=== PATIENT | male | born 1945 | race Caucasian/White ===

== ENCOUNTER 2018-05-05 10:02 | Inpatient (IN) | payer OTHER ==
[~2018-05-05] VITALS: Ht 175.3 cm; Wt 60.2 kg
[~2018-05-05 10:02] MED LIST: ASPIR-LOW81 MG PO; CARDIZEM CD120 MG PO; CENTRUM1 TAB PO; LEVOTHYROXIN0.075 MG PO
[2018-05-05 10:45] LABS: HEMATOCRIT 40.9 % (42.0-52.0); MEAN CELL VOLUME 93 fl (80.0-100.0); MEAN CORPUSCULAR HEMOGLOBIN 32 pg (27.0-31.0); MEAN CORPUSCULAR HGB CONC 34 g/dl (33.0-37.0); MEAN PLATELET VOLUME 10.7 fl (7.4-10.4); PLATELET COUNT 133 K/mm3 (130-400); RED BLOOD COUNT 4.39 M/mm3 (4.20-5.60); REDCELL DISTRIBUTION WIDTH-CV 12.9 % (11.5-14.5)
[2018-05-05 10:48] LABS: ALBUMIN 3.5 gm/dL (3.5-5.0); CREATININE, serum 1.57 mg/dL (0.66-1.25); POTASSIUM 3.9 mmol/L (3.4-5.0); TOTAL PROTEIN 6.8 gm/dL (6.4-8.2)
[2018-05-05 11:00] LABS: TROPONIN-I 0.024 ng/mL (0.000-0.034)
[2018-05-05 11:04] LABS: BAND 22 % (0-10); LYMPHOCYTE 3 % (20.0-51.0); METAMYELOCYTE 1 % (0-0); NEUTROPHILS 69 % (42.0-75.2); PLATELET ESTIMATE DECREASED (NORMAL)
[2018-05-05] MEDS ORDERED: PRILOSEC 20MG20 MG PO (11:42)
[2018-05-05] MEDS ORDERED: LEVOXYL0.05 MG PO (11:42)
[2018-05-05] MEDS ORDERED: NORVASC 5MG5 MG/TAB PO (11:42)
[2018-05-05] MEDS ORDERED: PRAVACHOL 40MG40 MG PO (11:43)
[2018-05-05] MEDS ORDERED: PRINIVIL40 MG PO (11:43)
[2018-05-05] MEDS ORDERED: COREG 6.256.25 MG/TA PO (11:43)
[2018-05-05 13:18] VITALS: BP 96/53; PULSE 70; TEMP 96.7
[2018-05-05 16:16] VITALS: BP 111/62; PULSE 58; TEMP 99
[2018-05-05 19:55] VITALS: BP 130/64; PULSE 76; TEMP 99.6
[2018-05-05 23:40] LABS: COLLECTION METHOD CLEAN CATCH
[2018-05-05 23:49] LABS: AMORPHOUS CRYSTAL Present /uL; GRANULAR CAST >12 /lpf; MUCOUS Present /lpf; PH 5 (5-8); SQUAMOUS EPITHELIAL 0-2 /hpf; URINE APPEARANCE Cloudy; URINE BACTERIA None Seen /hpf; URINE BILIRUBIN Negative (NEGATIVE); URINE BLOOD 2+ (NEGATIVE); URINE COLOR Yellow; URINE GLUCOSE Negative (NEGATIVE); URINE KETONE Negative (NEGATIVE); URINE LEUKOCYTE ESTERASE Negative (NEGATIVE); URINE NITRATE Negative (NEGATIVE); URINE PROTEIN(semi-quant) 2+ (NEGATIVE); URINE RBC 0-2 /hpf; URINE UROBILINOGEN Negative (NEGATIVE)
[2018-05-06 00:13] VITALS: BP 114/57; PULSE 64
[2018-05-06 05:22] VITALS: BP 114/67; PULSE 80
[2018-05-06 07:52] LABS: HEMATOCRIT 38.1 % (42.0-52.0); MEAN CELL VOLUME 92 fl (80.0-100.0); MEAN CORPUSCULAR HEMOGLOBIN 31 pg (27.0-31.0); MEAN CORPUSCULAR HGB CONC 34 g/dl (33.0-37.0); MEAN PLATELET VOLUME 10.7 fl (7.4-10.4); PLATELET COUNT 110 K/mm3 (130-400); RED BLOOD COUNT 4.14 M/mm3 (4.20-5.60); REDCELL DISTRIBUTION WIDTH-CV 13.3 % (11.5-14.5)
[2018-05-06 08:01] LABS: BAND 15 % (0-10); LYMPHOCYTE 9 % (20.0-51.0); METAMYELOCYTE 1 % (0-0); NEUTROPHILS 71 % (42.0-75.2); PLATELET ESTIMATE DECREASED (NORMAL)
[2018-05-06 08:04] LABS: CALCIUM 7.2 mg/dL (8.4-10.2); CREATININE, serum 1.06 mg/dL (0.66-1.25); POTASSIUM 3.8 mmol/L (3.4-5.0)
[2018-05-06 13:23] VITALS: BP 121/59; TEMP 97.4
[2018-05-06 16:44] VITALS: BP 110/59; PULSE 81; TEMP 99.6
[2018-05-06 19:04] VITALS: BP 113/68; PULSE 78; TEMP 100.5
[2018-05-06 23:47] VITALS: BP 89/55; PULSE 36; TEMP 98.1
[2018-05-07] VITALS (7 sets, daily range): BP systolic 92–125; BP diastolic 58–77; PULSE 60–97; TEMP 97.4–99
[2018-05-07 07:53] LABS: HEMATOCRIT 40.1 % (42.0-52.0); HEMOGLOBIN 13.4 g/dl (13.5-18.0); MEAN CELL VOLUME 94 fl (80.0-100.0); MEAN CORPUSCULAR HEMOGLOBIN 32 pg (27.0-31.0); MEAN CORPUSCULAR HGB CONC 33 g/dl (33.0-37.0); MEAN PLATELET VOLUME 11.3 fl (7.4-10.4); PLATELET COUNT 126 K/mm3 (130-400); RED BLOOD COUNT 4.25 M/mm3 (4.20-5.60); REDCELL DISTRIBUTION WIDTH-CV 13.6 % (11.5-14.5)
[2018-05-07 08:03] LABS: CALCIUM 7.4 mg/dL (8.4-10.2); CREATININE, serum 1.03 mg/dL (0.66-1.25); POTASSIUM 3.8 mmol/L (3.4-5.0)
[2018-05-08 03:33] VITALS: BP 115/69; PULSE 78; TEMP 98.3
[2018-05-08 06:28] LABS: HEMOGLOBIN 12.4 g/dl (13.5-18.0); MEAN CELL VOLUME 93 fl (80.0-100.0); MEAN CORPUSCULAR HEMOGLOBIN 32 pg (27.0-31.0); MEAN CORPUSCULAR HGB CONC 34 g/dl (33.0-37.0); MEAN PLATELET VOLUME 11.3 fl (7.4-10.4); PLATELET COUNT 148 K/mm3 (130-400); RED BLOOD COUNT 3.91 M/mm3 (4.20-5.60); REDCELL DISTRIBUTION WIDTH-CV 13.6 % (11.5-14.5)
[2018-05-08 06:30] LABS: HEMATOCRIT 36.2 % (42.0-52.0)
[2018-05-08 06:39] LABS: ALBUMIN 2.4 gm/dL (3.5-5.0); BILIRUBIN,TOTAL 0.6 mg/dL (0.0-1.0); CALCIUM 7.3 mg/dL (8.4-10.2); CREATININE, serum 0.79 mg/dL (0.66-1.25); POTASSIUM 3.3 mmol/L (3.4-5.0); TOTAL PROTEIN 5.3 gm/dL (6.4-8.2)
[2018-05-08 07:46] VITALS: BP 122/71; PULSE 69; TEMP 97.8
[2018-05-08 08:19] LABS: BAND 4 % (0-10); EOSINOPHIL 2 % (0-4); LYMPHOCYTE 16 % (20.0-51.0); METAMYELOCYTE 2 % (0-0); NEUTROPHILS 73 % (42.0-75.2); PLATELET ESTIMATE DECREASED (NORMAL)
[2018-05-08 09:59] LABS: INR 1.1 (0.8-3.0); PROTHROMBIN TIME 12.3 SECONDS (9.7-12.8)
[2018-05-08 11:26] VITALS: BP 117/81; PULSE 71; TEMP 97.8
[2018-05-08 12:09] LABS: ALBUMIN 2.4 gm/dL (3.5-5.0); BILIRUBIN UNCONJUGATED 0.2 mg/dL (0.0-1.1); BILIRUBIN,DIRECT 0.4 mg/dL (0.0-0.4); BILIRUBIN,TOTAL 0.6 mg/dL (0.0-1.0); TOTAL PROTEIN 5.3 gm/dL (6.4-8.2)
[2018-05-08] MEDS ORDERED: LEVAQUIN 750MG750 M1 PO (12:26)
== END 2018-05-08 13:54 | disposition home or self-care (01) | DRG 871 ==
LOC: COL.ER 10:02 → MEDICAL 11:19
PROVIDERS: Emergency Medicine; Hospitalist; Physician Assistant
DX: A41.9 Sepsis, unspecified organism (principal); A48.1 Legionnaires' disease; J18.9 Pneumonia, unspecified organism; J96.01 Acute respiratory failure with hypoxia; N17.9 Acute kidney failure, unspecified; E87.1 Hypo-osmolality and hyponatremia; Z66 Do not resuscitate; I10 Essential (primary) hypertension; E78.5 Hyperlipidemia, unspecified; Z87.891 Personal history of nicotine dependence; E87.8 Other disorders of electrolyte and fluid balance, not elsewhere classified; E86.0 Dehydration; I25.10 Atherosclerotic heart disease of native coronary artery without angina pectoris; Z95.1 Presence of aortocoronary bypass graft; E87.6 Hypokalemia
CPT/HCPCS: OP; 99223-AI; 99233-AI; 99239; A4216; G8978-GP; G8979-GP; G8987-GO; G8988-GO; J0456; J0696; J1644; J7030; J7050